=== PATIENT | female | born 1970 | race Caucasian/White ===

== ENCOUNTER 2021-10-17 10:15 | Emergency (ER) | payer BC, SELFPAY ==
--- NOTE | 2021-10-17 | ECG_ITS ---
Measurements Intervals [place] Rate: 95 P: 29 CO: 151 QRS: 20 QRSD: 78 T: 18 QT: 330 QTc: 416 Interpretive Statements SINUS RHYTHM LOW QRS VOLTAGE IN PRECORDIAL LEADS BASELINE ARTIFACT- I, II, III, AVR, AVL, AVF, V1-V6 BORDERLINE ECG Electronically Signed On 10-17-2021 16:10:47 [employer]OCUS PULLER by Roger Beasley D.O.
[2021-10-17 10:28] VITALS: BP 126/72; PULSE 91; RESP 16; TEMP 36.6; O2SAT 97
--- NOTE | 2021-10-17 10:44 | ED.CHESTPAIN ---
HPI - Chest Pain General Chief Complaint: Chest Pain Stated Complaint: chest pain Time Seen by Provider: 10/17/21 10:44 Source: patient Mode of arrival: ambulatory Limitations: no limitations History of Present Illness HPI narrative: Nico Nava is a 51 yo female with a PMH of high cholesterol and erosive esophagitis, who comes to [facility] with complaints of left-sided chest pain that started last night at 6 PM is intermittent and each time it recurs is worsening she describes her pain as 6 out of between 6 and 8 out of 10 with a squeezing sensation with radiation into the left side of the neck. Patient is under the care of a physician at [facility] Related Data Allergies Allergy/AdvReac Type Severity Reaction Status Date / Time No Known Drug Allergies Allergy Mild Other Verified 10/17/21 11:36 Review of Systems Review of Systems: CONSTITUTIONAL: Denies fever, chills, sweats. EYES: Denies visual changes, redness, discharge. ENT: Denies rhinorrhea, congestion, sore throat, otalgia. CARDIOVASCULAR: Has chest pain, palpitations, edema. RESPIRATORY: Denies dyspnea, wheezing, cough GASTROINTESTINAL: Denies abdominal pain, nausea, vomiting, diarrhea. GENITOURINARY: Denies dysuria, hematuria, abnormal discharge SKIN: Denies rash or itching. NEUROLOGIC: Denies numbness, or focal weakness. PSYCHIATRIC: Denies anxiety or depression. [facility] Past Medical History Medical History Erosive esophagitis High cholesterol Smoker Social History Social History (Updated 10/17/21 @ 10:47 by Fatuma Villagomez CNP) Smoking status: Current every day smoker Tobacco type: cigarettes Comments At time of signature, I agree with nursing past medical, surgical, social and family history. There is no relevant family history pertinent to the presenting complaint. Exam Narrative: GENERAL: This is a well-nourished, well-developed patient, in mild distress. HEAD: normocephalic, atraumatic. EYES: Sclera clear/white. Vision is grossly intact. EARS: External ears normal. Hearing grossly intact. NOSE: External nose normal without nasal discharge, nares without redness, no rhinorrhea. THROAT: Mucous membranes moist, NECK: Neck supple, non-tender CARDIOVASCULAR: Regular rate and rhythm without murmurs, gallops, or rubs. RESPIRATORY: Clear to auscultation. Breath sounds equal bilaterally. No wheezes, rales, or rhonchi. GASTROINTESTINAL: Abdomen soft, non-tender, SKIN: warm, intact with no suspicious lesions or rash, good texture and turgor. NEURO: awake, alert, and oriented to person, place and time. There were no obvious focal neurologic abnormalities. Steady gait EXTREMITIES: Normal range of motion. BACK: Nontender without deformity Course Course Emergency Course: Patient comes with pressure in left-sided chest that radiates to her left neck gets intermittent pain that started yesterday EKG shows EKG changes in lead I and aVL no QT prolongation rate is 95 abnormal EKG Patient transferred to [facility] for further evaluation Level of Care: Express Care Visit Vital Signs Vital signs: Vital Signs Temperature 97.9 F 10/17/21 10:28 Pulse Rate 91 10/17/21 10:28 Respiratory Rate 16 10/17/21 10:28 Blood Pressure 126/72 10/17/21 10:28 Pulse Oximetry 97 10/17/21 10:28 Temperature 97.9 F 10/17/21 10:28 Pulse Rate 91 10/17/21 10:28 Respiratory Rate 16 10/17/21 10:28 Blood Pressure 126/72 10/17/21 10:28 Pulse Oximetry 97 10/17/21 10:28 MDM - Chest Pain Differential Diagnosis Differential diagnosis: Likely stable angina, costochondritis, chest pain and other Critical Care Time Critical Care Time Critical Care Time: No Discharge Plan Discharge Clinical Impression: Chest pain Qualifiers: Chest pain type: other chest pain Qualified Code(s): R07.89 - Other chest pain Patient Disposition: Acute Care Hospital Condition: Stable Instructions: Chest Pain (ED) Follow-up/Refe
== END 2021-10-17 10:45 | disposition short-term general hospital (02) ==
PROVIDERS: Emergency Provider Nurse Practitioner; PCP Family Medicine
DX: R07.89 Other chest pain (principal); F17.210 Nicotine dependence, cigarettes, uncomplicated; E78.00 Pure hypercholesterolemia, unspecified
CPT/HCPCS: 93005; 99213; G0463

== ENCOUNTER 2022-08-01 11:01 | Emergency (ER) | payer BC, SELFPAY ==
[2022-08-01 11:25] VITALS: BP 129/90; PULSE 99; RESP 18; TEMP 35.8; O2SAT 98
--- NOTE | 2022-08-01 13:01 | ED.SKABFB ---
HPI - Skin/Abscess/Foreign Bdy General Chief complaint: Skin/Abscess/Foreign Body Stated complaint: Rash on Arms Time Seen by Provider: 08/01/22 13:01 Source: patient Mode of arrival: ambulatory Limitations: no limitations History of Present Illness HPI narrative: 52-year-old female presents with complaint of rash to anterior aspect of both breasts for 3 weeks. Has not seen her primary care physician for this problem. States that she did message a nurse through the online system and was told to go to the urgent care to be treated. Patient denies use of any new skin products. No new clothes. Reports that she has very sensitive skin and cannot use any lotions. States that rash started to right wrist and then travel to left wrist. Nonpainful. Complaining of itching. All systems reviewed and negative except as noted above. Related Data Home Medications Medication Instructions Recorded Confirmed bupropion HCl 150 mg 24 hr tablet, mg PO 08/01/22 extended release furosemide 20 mg tablet mg 08/01/22 glycopyrrolate 2 mg tablet mg 08/01/22 magnesium oxide 400 mg (241.3 mg mg 08/01/22 magnesium) tablet prochlorperazine maleate 10 mg mg 08/01/22 tablet sucralfate 1 gram tablet 08/01/22 Allergies Allergy/AdvReac Type Severity Reaction Status Date / Time No Known Drug Allergies Allergy Mild Other Verified 10/17/21 11:36 Review of Systems Review of Systems: CONSTITUTIONAL: Denies fever, chills, or sweats. EYES: Denies visual changes, redness, or discharge. ENT: Denies rhinorrhea, congestion, sore throat, or otalgia. CARDIOVASCULAR: Denies chest pain, palpitations, or edema. RESPIRATORY: Denies cough or dyspnea. GASTROINTESTINAL: Denies abdominal pain, nausea, vomiting, or diarrhea. GENITOURINARY: Denies dysuria or hematuria. SKIN: Report rash and itching. MUSCULOSKELETAL: Denies back pain, joint pain, or myalgia. NEUROLOGIC: Denies headache, numbness, or weakness. PSYCHIATRIC: Denies anxiety or depression. All other systems reviewed are negative, except as documented in HPI. [facility] Past Medical History Medical History Erosive esophagitis High cholesterol Smoker Social History Social History (Updated 10/17/21 @ 10:47 by Fatuma Villagomez, CONTACT CENTER DIRECTOR) Smoking status: Current every day smoker Tobacco type: cigarettes Comments At time of signature, agree with nursing past medical, surgical, social and family history. There is no relevant family history pertinent to the presenting complaint. Exam Narrative: GENERAL: This is a well-nourished, well-developed patient, in no apparent distress. HEAD: normocephalic, atraumatic. EYES: PERRL. Sclera clear/white. Vision is grossly intact. EARS: External ears normal NOSE: External nose normal NECK: Neck supple, non-tender without lymphadenopathy, masses or thyromegaly. CARDIOVASCULAR: Regular rate and rhythm without murmurs, gallops, or rubs. RESPIRATORY: Clear to auscultation. Breath sounds equal bilaterally. No wheezes, rales, or rhonchi. SKIN: warm, Dry, intact with no suspicious lesions good texture and turgor. erythematous, scaly rash to anterior aspect both wrists. there is no swelling or drainage. NEURO: awake, alert, and oriented to person, place and time. There were no obvious focal neurologic abnormalities. EXTREMITIES: No joint tenderness, effusion, or edema noted. Course Course Level of Care: Express Care Visit Vital Signs Vital signs: Vital Signs Temperature 35.8 C L 08/01/22 11:25 Pulse Rate 99 08/01/22 11:25 Respiratory Rate 18 08/01/22 11:25 Blood Pressure 129/90 08/01/22 11:25 Pulse Oximetry 98 08/01/22 11:25 Oxygen Delivery Room Air 08/01/22 11:25 Temperature 35.8 C L 08/01/22 11:25 Pulse Rate 99 08/01/22 11:25 Respiratory Rate 18 08/01/22 11:25 Blood Pressure 129/90 08/01/22 11:25 Pulse Oximetry 98 08/01/22 11:25 Oxygen Delivery Room Air 08/01/22 11:25 Reviewed MDM
== END 2022-08-01 13:11 | disposition home or self-care (01) ==
PROVIDERS: Emergency Provider Nurse Practitioner Family; PCP Family Medicine
DX: L30.9 Dermatitis, unspecified (principal); E78.00 Pure hypercholesterolemia, unspecified; F17.210 Nicotine dependence, cigarettes, uncomplicated; K22.10 Ulcer of esophagus without bleeding
CPT/HCPCS: 99213; G0463

== ENCOUNTER 2022-12-08 18:27 | Emergency (ER) | payer BC, SELFPAY ==
[2022-12-08 18:50] VITALS: BP 146/75; PULSE 96; RESP 12; TEMP 36.6; O2SAT 98
[2022-12-08 18:51] VITALS: BP 146/75; PULSE 96; RESP 12; TEMP 36.6; O2SAT 98
--- NOTE | 2022-12-08 18:57 | ED.FEMALEGU ---
HPI - Female Genitourinary General Chief complaint: Urogenital-Female Stated complaint: uti Time Seen by Provider: 12/08/22 18:57 Source: patient Mode of arrival: ambulatory Limitations: no limitations History of Present Illness HPI Narrative: Glenna is a 52-year-old female patient presenting to clinic today with complaints of possible urinary tract infection times 1-2 weeks. She states she is having cloudy malodorous urine and discomfort with urination. She denies any abdominal pain or flank pain. She denies any fever or chills. Related Data Home Medications Medication Instructions Recorded Confirmed bupropion HCl 150 mg 24 hr tablet, mg PO 08/01/22 extended release furosemide 20 mg tablet mg 08/01/22 glycopyrrolate 2 mg tablet mg 08/01/22 magnesium oxide 400 mg (241.3 mg mg 08/01/22 magnesium) tablet prochlorperazine maleate 10 mg mg 08/01/22 tablet sucralfate 1 gram tablet 08/01/22 esomeprazole magnesium 40 mg mg 12/08/22 capsule,delayed release levalbuterol tartrate 45 inhalation 12/08/22 12/08/22 mcg/actuation aerosol inhaler ondansetron 4 mg disintegrating mg 12/08/22 12/08/22 tablet rosuvastatin 10 mg tablet mg 12/08/22 Allergies Allergy/AdvReac Type Severity Reaction Status Date / Time No Known Drug Allergies Allergy Mild Other Verified 12/08/22 18:47 Review of Systems Review of Systems: Pertinent positives per HPI. Patient denies any fever, chills, rash, headache, visual changes, dizziness, cough, runny nose, sore throat, shortness of breath, chest pain, palpitations, nausea, vomiting, diarrhea, constipation, abdominal pain. [facility] Past Medical History Medical History Erosive esophagitis High cholesterol Smoker Social History Social History Smoking status: Current every day smoker Tobacco type: cigarettes Comments At the time of my signature, I reviewed and agree with the nursing past medical, surgical, social, and family history. There is no relevant family history pertinent to the patient complaint. Exam Narrative: General: Well-developed, obese, in no apparent distress. Head: Normocephalic, atraumatic. Cardio: Regular rate and rhythm, s1 and s2 normal, no murmur appreciated. Resp: Clear to auscultation bilaterally, no rhonchi, rales, wheezing or rubs. Abdomen: Soft, pliable, bowel sounds present in all quadrants, non-tender to palpation, no organomegly, no CVAT tenderness. Course Course Emergency Course: Portions of this record may have been created with voice recognition software. Level of Care: Express Care Visit Vital Signs Vital signs: Vital Signs Temperature 36.6 C 12/08/22 18:50 Pulse Rate 96 12/08/22 18:50 Respiratory Rate 12 12/08/22 18:50 Blood Pressure 146/75 H 12/08/22 18:50 Pulse Oximetry 98 12/08/22 18:50 Oxygen Delivery Room Air 12/08/22 18:50 Temperature 36.6 C 12/08/22 18:51 Pulse Rate 96 12/08/22 18:51 Respiratory Rate 12 12/08/22 18:51 Blood Pressure 146/75 H 12/08/22 18:51 Pulse Oximetry 98 12/08/22 18:51 Oxygen Delivery Room Air 12/08/22 18:51 Vital signs reviewed MDM - Female Genitourinary MDM Narrative Medical decision making narrative: At the time of visit patient is resting comfortably on exam table. Urinalysis was completed and shows cloudy urine, trace of leukocyte, and 1+ blood. Will send for culture. Will place the patient on prescription for Bactrim. Supportive measures were discussed with the patient she voiced understanding discharge instructions agrees to treatment plan. Differential Diagnosis Differential diagnosis: Likely urinary tract infection and cystitis Lab Data Labs: Urine Glucose Negative Reference Range: Negative Urine Glucose Negative Reference Range: Negative
== END 2022-12-08 19:12 | disposition home or self-care (01) ==
PROVIDERS: Emergency Provider Nurse Practitioner Family; PCP Family Medicine
DX: N30.01 Acute cystitis with hematuria (principal); F17.210 Nicotine dependence, cigarettes, uncomplicated
CPT/HCPCS: 81003; 87086; 99213; G0463

== ENCOUNTER 2023-07-16 16:35 | Emergency (ER) | payer BC, SELFPAY ==
[2023-07-16 16:50] VITALS: BP 144/77; PULSE 88; RESP 20; TEMP 36.4; O2SAT 99
--- NOTE | 2023-07-16 17:11 | ED.EXTPRO ---
HPI - Extremity Problem General Chief complaint: Extremity Problem,Nontraumatic Stated complaint: right knee swollen Time Seen by Provider: 07/16/23 16:53 Source: patient and RN notes reviewed Mode of arrival: ambulatory Limitations: no limitations History of Present Illness HPI Narrative: Patient presents today complaining of right knee pain x1 week. Denies injury or trauma. States pain is worse today and is intermittent. Reports pain at times radiates to her. Currently rates her pain 5/10. She has been taking Tylenol and ibuprofen as well as elevating it at home without much relief. Related Data Home Medications Medication Instructions Recorded Confirmed furosemide 20 mg tablet 20 mg PO DAILY PRN Edema 08/01/22 07/16/23 rosuvastatin 10 mg tablet 10 mg PO DAILY 12/08/22 07/16/23 esomeprazole magnesium 40 mg 40 mg PO DAILY 07/16/23 07/16/23 capsule,delayed release Allergies Allergy/AdvReac Type Severity Reaction Status Date / Time No Known Drug Allergies Allergy Mild Other Verified 07/16/23 16:39 Review of Systems Review of Systems: CONSTITUTIONAL: Denies body aches, fever, chills, or sweats. EYES: Denies visual changes, redness, or discharge. ENT: Denies rhinorrhea, congestion, sore throat, or otalgia. CARDIOVASCULAR: Denies chest pain, palpitations, or edema. RESPIRATORY: Denies cough or dyspnea. GASTROINTESTINAL: Denies abdominal pain, nausea, vomiting, or diarrhea. GENITOURINARY: Denies dysuria or hematuria. SKIN: Denies rash, itching, or wounds. MUSCULOSKELETAL: Denies back pain, or myalgia.+ right knee pain NEUROLOGIC: Denies headache, numbness, tingling, or weakness. PSYCH: Denies depression or anxiety. PMFSH Past Medical History Medical History Erosive esophagitis High cholesterol Smoker Social History Social History Smoking status: Current every day smoker Tobacco type: cigarettes Comments At time of signature, I have reviewed and agree with nursing past medical, surgical, social and family history unless otherwise noted. Please see nursing chart for further information. There is no relevant family history pertinent to the presenting complaint Exam Narrative: GENERAL: Well-appearing, well-nourished, and in no acute distress. HEAD: Normocephalic, atraumatic. EYES: EOMI. No redness or drainage. Conjunctivae normal. ENT: Mucous membranes pink and moist. NECK: Normal AROM. CHEST: No respiratory distress. EXTREMITIES: Right knee: Tenderness to the medial joint line. No tenderness laterally. No bony tenderness of the patella, or the patellar tendon. No pain with active range of motion. Distal sensation intact. Capillary refill normal. Pedal pulses normal. No erythema or ecchymosis noted. Mild edema noted about the knee. SKIN: Warm, dry, no rash. Capillary refill normal. Normal skin turgor. NEURO: No focal deficits. Alert and oriented x3. Gait steady. PSYCH: Normal affect. No signs of depression or anxiety. Course Course Level of Care: Express Care Visit Vital Signs Vital signs: Vital Signs Temperature 97.6 F 07/16/23 16:50 Pulse Rate 88 07/16/23 16:50 Respiratory Rate 20 07/16/23 16:50 Blood Pressure 144/77 H 07/16/23 16:50 Pulse Oximetry 99 07/16/23 16:50 Temperature 97.6 F 07/16/23 16:50 Pulse Rate 88 07/16/23 16:50 Respiratory Rate 20 07/16/23 16:50 Blood Pressure 144/77 H 07/16/23 16:50 Pulse Oximetry 99 07/16/23 16:50 Reviewed MDM - Extremity (Nontraumatic) MDM Narrative Medical decision making narrative: Patient has declined transfer to the [facility] for x-ray, as this facility does not currently have an x-ray accredited pharmacy technician. Will try patient on a Medrol Dosepak to see if this helps with her symptoms. Recommend she follow up with her PCP or orthopedist for further evaluation. Patient agrees with plan. Anticipatory guidance given.. Diff
== END 2023-07-16 17:20 | disposition home or self-care (01) ==
PROVIDERS: Emergency Provider Nurse Practitioner; PCP Family Medicine
DX: M25.561 Pain in right knee (principal); K22.10 Ulcer of esophagus without bleeding; E78.00 Pure hypercholesterolemia, unspecified; F17.210 Nicotine dependence, cigarettes, uncomplicated
CPT/HCPCS: 99213; G0463

== ENCOUNTER 2023-08-02 08:40 | Outpatient (CLI) | payer BC, SELFPAY ==
--- NOTE | ~2023-08-02 | MR_ITS ---
MRI of the left knee Clinical history: Pain Technique: Coronal proton density and proton density-weighted images, sagittal proton-density and T2 fat-sat images, and axial proton-density fat-saturated images were acquired. Findings: Anterior cruciate ligament is somewhat poorly delineated, with increased signal. This could reflect severe mucoid degenerative change versus possible chronic complete tear. Correlate for ACL l axity. Posterior cruciate ligament is intact. Medial collateral ligament and the lateral collateral l igament complex are intact. Popliteus tendon is intact. Medial and lateral menisci are intact, without evidence of tear. Probable mild tricompartmental chondral thinning. Bone marrow signals are unremarkable. Extensor mechanism is intact. Small joint effusion present. There is small Fishman's cyst with evidence of probable partial rupture of the cyst, with soft tissue edema extending posteriorly along fascial planes. 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 Correlate for ACL laxity. Small, partially ruptured Fishman's cyst, with fluid extending inferiorly along fascial planes. Mild tricompartmental chondral thinning. Reviewed, dictated and finalized at location . 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 Breann elate for ACL laxity. Small, partially ruptured Fishman's cyst, with fluid extending inferiorly along f ascial planes. Mild tricompartmental chondral thinning.
== END 2023-08-02 08:41 ==
LOC: MICIMG 08:42
PROVIDERS: PCP Family Medicine; Visit Provider Orthopaedic Surgery
DX: M71.22 Synovial cyst of popliteal space [Baker], left knee (principal); M94.262 Chondromalacia, left knee
CPT/HCPCS: 73721

== ENCOUNTER 2024-03-29 11:46 | Emergency (ER) | payer BC, SELFPAY ==
[2024-03-29 12:11] VITALS: BP 139/87; PULSE 98; RESP 18; TEMP 36.6; O2SAT 98
--- NOTE | 2024-03-29 13:02 | ED.URI ---
HPI - URI/Sore Throat General Chief Complaint: Upper Respiratory Infection Stated Complaint: Vomiting/Ear Irritation Time Seen by Provider: 03/29/24 13:03 History of Present Illness HPI Narrative: patient presents with fever, chills, sweats, body aches, cough. Symptoms began yesterday. She denies any shortness of breath. Related Data Home Medications Medication Instructions Recorded Confirmed furosemide 20 mg tablet 20 mg PO DAILY PRN Edema 08/01/22 03/29/24 rosuvastatin 10 mg tablet 10 mg PO DAILY 12/08/22 03/29/24 esomeprazole magnesium 40 mg 40 mg PO DAILY 07/16/23 03/29/24 capsule,delayed release Allergies Allergy/AdvReac Type Severity Reaction Status Date / Time No Known Drug Allergies Allergy Mild Other Verified 03/29/24 12:16 Review of Systems Review of Systems: All systems reviewed & are unremarkable except as noted in HPI and below Constitutional: Constitutional: Reports fatigue, Reports fever(s), Reports headache(s) and Reports malaise ENT: Reports system reviewed and no additional complaints, except as documented, Reports headache(s), Reports nasal discharge, Reports nasal obstruction and Reports post nasal drip Cardiovascular: Cardiovascular: Reports no additional cardiovascular complaints Respiratory: Respiratory: Reports cough Gastrointestinal: Gastrointestinal: Reports no additional gastrointestinal complaints Musculoskeletal: Musculoskeletal: Reports myalgias PMFSH Past Medical History Medical History Erosive esophagitis High cholesterol Smoker Social History Social History Smoking status: Current every day smoker Tobacco type: cigarettes Exam Const: General: cooperative, no acute distress, alert and awake Orientation/consciousness: oriented to person, oriented to place and oriented to time HENMT: Head: normal to inspection Throat: postnasal drainage Resp: Effort & Inspection: normal respiratory effort and able to speak in complete sentences Auscultation: clear to auscultation bilaterally, no crackles, no rales, no rhonchi and no wheezes Cardio: Palpation: normal PMI Rate: regular rate Rhythm: regular rhythm Heart sounds: S1 normal heart sound present and S2 normal heart sound present Neuro: General: oriented to person, oriented to place and oriented to time Cranial nerves: Yes CN's II-XII intact bilaterally Psych: Appearance: grossly normal Thought process: Normal thought process present Insight: Good insight present (Psych) Judgement: Good judgement present (Psych) Course Course Level of Care: Express Care Visit Vital Signs Vital signs: Vital Signs Temperature 97.8 F 03/29/24 12:11 Pulse Rate 98 03/29/24 12:11 Respiratory Rate 18 03/29/24 12:11 Blood Pressure 139/87 03/29/24 12:11 Pulse Oximetry 98 03/29/24 12:11 Oxygen Delivery Room Air 03/29/24 12:11 Temperature 97.8 F 03/29/24 12:11 Pulse Rate 98 03/29/24 12:11 Respiratory Rate 18 03/29/24 12:11 Blood Pressure 139/87 03/29/24 12:11 Pulse Oximetry 98 03/29/24 12:11 Oxygen Delivery Room Air 03/29/24 12:11 MDM - URI/Sore Throat MDM Narrative Medical decision making narrative: patient with COVID less than 48 hours. She wishes to start Paxil bit. This has been ordered. She appears stable, nontoxic. Emergency department for new or worsening symptoms. Follow up with primary care provider in 1-2 weeks. Elevated blood pressure of 139/87 discussed with patient, states she will follow up with primary care for Medical Records Attestation: I reviewed the patient's medical records. Lab Data Attestation: I reviewed the patient's lab results. Lab results narrative: positive covid Labs: Lab Results 03/29/24 Range/Units 13:01 POC SARS CoV-2 Ag Positive (Negative) Discharge Plan Discharge Clinical Impression: COVID-19, Elevated blood pressure reading Patient Disposition
== END 2024-03-29 13:18 | disposition home or self-care (01) ==
PROVIDERS: Emergency Provider Nurse Practitioner Family; PCP Family Medicine
DX: U07.1 COVID-19 (principal); R03.0 Elevated blood-pressure reading, without diagnosis of hypertension; F17.210 Nicotine dependence, cigarettes, uncomplicated; E78.00 Pure hypercholesterolemia, unspecified; K20.80 Other esophagitis without bleeding
CPT/HCPCS: 87426; 99213; G0463

== ENCOUNTER 2024-07-10 15:38 | Emergency (ER) | payer BC, SELFPAY ==
--- NOTE | 2024-07-10 15:39 | ED.SKABFB ---
HPI - Skin/Abscess/Foreign Bdy General Chief complaint: Skin/Abscess/Foreign Body Stated complaint: Insect Bite Time Seen by Provider: 07/10/24 15:56 Source: patient, RN notes reviewed and old records reviewed Mode of arrival: ambulatory Limitations: no limitations History of Present Illness HPI narrative: 54-year-old female presents to the [facility] with concerns of being bit by an insect of unknown yesterday. Area is now red to the right rib. No treatment prior to arrival Related Data Home Medications Medication Instructions Recorded Confirmed furosemide 20 mg tablet 20 mg PO DAILY PRN Edema 08/01/22 07/10/24 rosuvastatin 10 mg tablet 10 mg PO DAILY 12/08/22 07/10/24 esomeprazole magnesium 40 mg 40 mg PO DAILY 07/16/23 07/10/24 capsule,delayed release Allergies Allergy/AdvReac Type Severity Reaction Status Date / Time No Known Drug Allergies Allergy Mild Other Verified 07/10/24 15:41 Review of Systems Review of Systems: All systems reviewed & are unremarkable except as noted in HPI and below Constitutional: Constitutional: Reports no additional constitutional complaints ENT: Reports system reviewed and no additional complaints, except as documented Cardiovascular: Cardiovascular: Reports no additional cardiovascular complaints, Denies chest pain and Denies dyspnea Respiratory: Respiratory: Reports no additional respiratory complaints, Denies chest congestion, Denies cough and Denies dyspnea Gastrointestinal: Gastrointestinal: Reports no additional gastrointestinal complaints, Denies abdominal pain, Denies nausea and Denies vomiting Musculoskeletal: Musculoskeletal: Reports no additional musculoskeletal complaints Integumentary/Breasts: Skin/Breast: Reports as per HPI PMF Past Medical History Medical History Erosive esophagitis High cholesterol Smoker Social History Social History Smoking status: Current every day smoker Tobacco type: cigarettes Comments At the time of my signature, I reviewed and agree with the nursing past medical, surgical, social, and family history. There is no relevant family history pertinent to the patient complaint. Exam Const: General: cooperative, healthy appearing, comfortable, no acute distress, well developed, alert and well nourished Nutritional Appearance: well nourished and obese Orientation/consciousness: patient oriented x3 Limitations: no limitations HENMT: Head: normal to inspection Ears: hearing grossly normal bilaterally and external ears normal Face/Nose/Sinus: Normal external nose present, normal facial exam and face symmetric Face and sinus: normal facial exam and face symmetric Eyes: General: appearance normal, both eyes and all related structures Alignment and Position: alignment normal Periorbital: periorbital findings normal Neck: Neck: normal visual inspection, full ROM, no lymphadenopathy and no meningeal signs Chest: Chest palpation & inspection: normal inspection of the chest Resp: Effort & Inspection: normal respiratory effort and able to speak in complete sentences Cardio: Rate: regular rate Skin: General skin exam: normal color and no rashes or lesions noted Rashes: no rashes Other: Red slightly raised area, 3 x 1 cm right lower rib lateral aspect not warm to touch, no fluctuance Neuro: General: patient oriented x3, gait normal, tone normal, moves all extremities and no meningeal signs Cognition (Neuro): normal cognition Speech: normal speech Gait exam (Neuro): Normal gait present Extrem: General: normal to inspection, full ROM, capillary refill normal and normal gait Psych: Appearance: grossly normal and well kempt Mental Status: mental status grossly normal Speech and movement: Normal speech and movement present and Clear speech present Affect: normal affect Attitude: cooperative Course Course Level of Care: Express Care Visit Vital Signs Vital signs:
[2024-07-10 15:50] VITALS: BP 129/64; PULSE 85; RESP 18; TEMP 36.4; O2SAT 97
== END 2024-07-10 16:30 | disposition home or self-care (01) ==
PROVIDERS: Emergency Provider Nurse Practitioner; PCP Family Medicine
DX: S20.361A Insect bite (nonvenomous) of right front wall of thorax, initial encounter (principal); W57.XXXA Bitten or stung by nonvenomous insect and other nonvenomous arthropods, initial encounter; K22.10 Ulcer of esophagus without bleeding; E78.00 Pure hypercholesterolemia, unspecified; F17.210 Nicotine dependence, cigarettes, uncomplicated
CPT/HCPCS: 99213; G0463

== ENCOUNTER 2024-10-31 18:21 | Emergency (ER) | payer BC, SELFPAY ==
--- NOTE | ~2024-10-31 | XR_ITS ---
CHEST RADIOGRAPH, PA AND LATERAL CLINICAL HISTORY: prod bloody cough x 1 day non smoker . COMPARISON: 07/06/2016 TECHNIQUE: PA and lateral views of the chest. FINDINGS The cardiomediastinal silhouette is unremarkable. 12 mm asymmetry within the left costophrenic sulcus, unchanged dating back to 2015 and likely a calci fied granuloma. The remainder of the lungs are clear. IMPRESSION: No focal infiltrate or effusion. Reviewed, dictated and finalized at location [employer]. [employer]
[2024-10-31 18:32] VITALS: BP 143/103; PULSE 89; RESP 16; TEMP 36.2; O2SAT 97
--- NOTE | 2024-10-31 18:32 | ED.URI ---
HPI - URI/Sore Throat General Chief Complaint: Upper Respiratory Infection Stated Complaint: cough,phlegm,fever,chills,VARGHESE Time Seen by Provider: 10/31/24 18:34 Source: patient and RN notes reviewed Mode of arrival: ambulatory Limitations: no limitations History of Present Illness HPI Narrative: 54-year-old female presents with concern for 1 day history of body aches, headache, chills, ear pain, productive cough, fever, chest tightness. She reports her phlegm is ?black with blood tinge she reports coughing fits that cause her to feel like she can not breathe. MD elicited complaint: cough and sore throat Related Data Home Medications ?Medication ?Instructions ?Recorded ?Confirmed ?Last Taken ?Type furosemide 20 mg tablet 20 mg PO DAILY PRN Edema 08/01/22 10/31/24 Unknown History rosuvastatin 10 mg tablet 10 mg PO DAILY 12/08/22 10/31/24 Unknown History esomeprazole magnesium 40 mg 40 mg PO DAILY 07/16/23 10/31/24 Unknown History capsule,delayed release Allergies Allergy/AdvReac Type Severity Reaction Status Date / Time No Known Drug Allergies Allergy Mild Other Verified 10/31/24 18:30 Review of Systems Review of Systems: CONSTITUTIONAL: Reports malaise, chills, fever. EYES: Denies visual changes, redness, or discharge. ENT: Reports rhinorrhea, congestion, otalgia CARDIOVASCULAR: Denies chest pain, palpitations, or edema. RESPIRATORY: Reports productive cough, and chest congestion and chest tightness GASTROINTESTINAL: Denies abdominal pain, nausea, vomiting, diarrhea SKIN: Denies rash or itching. MUSCULOSKELETAL: Reports myalgia. NEUROLOGIC: Reports headache. All systems reviewed & are unremarkable except as noted in HPI and below PMFSH Past Medical History Medical History Erosive esophagitis High cholesterol Smoker Social History Social History Smoking status: Current every day smoker Tobacco type: cigarettes Comments At time of signature, agree with nursing past medical, surgical, social and family history. There is no relevant family history pertinent to the presenting complaint Exam Narrative: GENERAL: Well-appearing, well-nourished, and in no acute distress. HEAD: Normocephalic EYES: PERRLA, conjunctivae clear ENT: Nares clear. Mucous membranes moist. TM pearly chicas with sharp light reflex bilaterally; no tragal tenderness. Oropharynx not erythematous without lesions. Tonsils not enlarged and without exudate, no drooling, no hoarseness, no trismus, uvula midline. NECK: Supple. No lymphadenopathy CHEST: Inspiratory wheeze throughout, breath sounds equal. No rhonchi, rales, or stridor. No respiratory distress, speaks in full sentences. HEART: Regular rate and rhythm. No murmur heard. SKIN: Warm, dry, no rash. NEURO: Alert and oriented x3. PSYCH: Normal mood and affect Course Course Emergency Course: Patient is aware of diagnosis, understands and agrees to treatment plan. Anticipatory guidance given. Patient agrees to follow-up as directed and is aware of reasons to seek care at the emergency department. Portions of this record may have been created with voice recognition software Level of Care: Express Care Visit Vital Signs Vital signs: Reviewed. MDM - URI/Sore Throat MDM Narrative Medical decision making narrative: Differential diagnosis considered: Del Rosario virus, strep pharyngitis, allergic rhinitis, upper respiratory tract infection, sinusitis, rhinosinusitis, nasopharyngitis. viral pharyngitis, otitis media, otitis externa, pneumonia, bronchitis, viral cough syndrome, viral syndrome, and influenza. Exam findings show no acute concerns or changes; patient is non-toxic appearing and is in no distress. Patient is appropriate for outpatient treatment and follow-up. Lab Data Attestation: I reviewed the patient's lab results. Imaging Data My impression: Images reviewed, interpreted by radiologist, agree, see report. Radiologist's impression: CHEST RADIOGRAPH, PA AND LATERAL CLINICAL HISTORY: prod bloody cough x 1 day non smoker . COMPARISON: 07/06/2016 TECHNIQUE: PA and lateral views of the chest. FINDINGS The cardiomediastinal silhouette is unremarkable. 12 mm asymmetry within the left costophrenic sulcus, unchanged dating back to 2016 and likely a calcified granuloma. The remainder of the lungs are clear. IMPRESSION: No focal infiltrate or effusion. Critical Care Time Critical Care Time Critical Care Time: No Discharge Plan Discharge Clinical Impression: Cough Patient Disposition: Home, Self-Care Condition: Stable Instructions: How to Use a Metered-Dose Inhaler (ED) Additional Instructions: Differential diagnosis considered: Del Rosario virus, strep pharyngitis, allergic rhinitis, upper respiratory tract infection, sinusitis, rhinosinusitis, nasopharyngitis. viral pharyngitis, otitis media, otitis externa, pneumonia, bronchitis, viral cough syndrome, viral syndrome, and influenza. Exam findings show no acute concerns or changes; patient is non-toxic appearing and is in no distress. Patient is appropriate for outpatient treatment and follow-up. Patient Language: Thai Prescriptions: New prednisone 20 mg tablet 40 mg PO DAILY 5 Days Qty: 10 0RF albuterol sulfate 90 mcg/actuation HFA aerosol inhaler 2 puff INHALATION QID PRN (Reason: shortness of breath or wheezing) Qty: 8.5 0RF azithromycin [Zithromax Z-Guy] 250 mg tablet See Rx Instructions .ROUTE .COMPLEX Qty: 6 0RF Rx Instructions: take 500 mg today (day 1), then 250 mg for 4 days (days 2-5) No Action rosuvastatin 10 mg tablet 10 mg PO DAILY esomeprazole magnesium 40 mg capsule,delayed release(DR/EC) 40 mg PO DAILY furosemide 20 mg tablet 20 mg PO DAILY PRN (Reason: Edema) Follow-up/Referrals: Liat,Kian Fox MD [Primary Care Provider] - Stand Alone Forms: Work/School Release IP Time of Disposition: 20:05
[2024-10-31 18:51] LABS: EDCOVIDSCREEN Negative (Negative); EDINFLUASCREEN Negative (Negative); EDINFLUBSCREEN Negative (Negative)
== END 2024-10-31 20:09 | disposition home or self-care (01) ==
PROVIDERS: Emergency Provider Nurse Practitioner; PCP Family Medicine
DX: R05.9 Cough, unspecified (principal); Z20.822 Contact with and (suspected) exposure to COVID-19; F17.210 Nicotine dependence, cigarettes, uncomplicated; E78.00 Pure hypercholesterolemia, unspecified
CPT/HCPCS: 71046; 87426; 87804; 99213; G0463

== ENCOUNTER 2024-11-20 13:18 | Emergency (ER) | payer BC, SELFPAY ==
[2024-11-20 13:25] VITALS: BP 132/81; PULSE 103; RESP 16; TEMP 36.2; O2SAT 96
--- NOTE | 2024-11-20 13:47 | ED.GENADULT ---
HPI - General Adult General Chief complaint: Nausea/Vomiting/Diarrhea Stated complaint: diarrhea,no better since last visit,flu/covid exp Time Seen by Provider: 11/20/24 13:47 Source: patient, RN notes reviewed and old records reviewed Mode of arrival: ambulatory Limitations: no limitations History of Present Illness HPI narrative: 54-year-old female presents to the [facility] with concerns for COVID and flu. 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 Patient was seen is on is October 31. Had 1 day history of body aches, headaches. X-ray was negative, flu COVID strep were negative. Was prescribed antibiotic, albuterol and steroids. Patient reports cough has improved. Has not been using her in inhaler for the last 2-3 days. Has a primary care provider appointment on November 26 Related Data Home Medications ?Medication ?Instructions ?Recorded ?Confirmed ?Last Taken ?Type furosemide 20 mg tablet 20 mg PO DAILY PRN Edema 08/01/22 10/31/24 Unknown History rosuvastatin 10 mg tablet 10 mg PO DAILY 12/08/22 10/31/24 Unknown History esomeprazole magnesium 40 mg 40 mg PO DAILY 07/16/23 10/31/24 Unknown History capsule,delayed release Allergies Allergy/AdvReac Type Severity Reaction Status Date / Time No Known Drug Allergies Allergy Mild Other Verified 11/20/24 13:35 Review of Systems Review of Systems: All systems reviewed & are unremarkable except as noted in HPI and below Constitutional: Constitutional: Reports as per HPI ENT: Reports system reviewed and no additional complaints, except as documented Cardiovascular: Cardiovascular: Reports no additional cardiovascular complaints, Denies chest pain and Denies dyspnea Respiratory: Respiratory: Reports as per HPI, Reports chest congestion, Reports cough and Reports dyspnea Musculoskeletal: Musculoskeletal: Reports no additional musculoskeletal complaints Integumentary/Breasts: Skin/Breast: Reports system reviewed and no additional complaints, except as docu [facility] Past Medical History Medical History Smoker High cholesterol Erosive esophagitis Social History Social History Smoking status: Current every day smoker Tobacco type: cigarettes Comments At the time of my signature, I reviewed and agree with the nursing past medical, surgical, social, and family history. There is no relevant family history pertinent to the patient complaint. Exam Const: General: cooperative, healthy appearing, comfortable, no acute distress, well developed, alert and well nourished Nutritional Appearance: well nourished and obese Orientation/consciousness: patient oriented x3 Limitations: no limitations HENMT: Head: normal to inspection Ears: hearing grossly normal bilaterally, external ears normal, TM's normal bilaterally, EAC's normal, mastoids normal and no periauricular adenopathy Mouth: Yes Normal oral and palatal mucosa present, Yes lip normal, Yes tongue normal and Yes moist mucous membranes Throat: posterior oropharynx normal, uvula midline and no uvular edema Eyes: General: appearance normal, both eyes and all related structures Alignment and Position: alignment normal Neck: Neck: normal visual inspection, full ROM, no lymphadenopathy and no meningeal signs Chest: Chest palpation & inspection: normal inspection of the chest Resp: Effort & Inspection: normal respiratory effort and able to speak in complete sentences Auscultation: no crackles, no rales, no rhonchi and wheezes expiratory wheezes and throughout Cardio: Rate: regular rate Skin: General skin exam: normal color and no rashes or lesions noted Neuro: General: patient oriented x3, gait normal, moves all extremities and no meningeal signs Cognition (Neuro): normal cognition Speech: normal speech Gait exam (Neuro): Normal gait present Extrem: General: normal to inspection, full ROM, capillary refill normal and normal gait Psych: Appearance: grossly normal and well kempt Mental Status: mental status grossly normal Speech and movement: Normal speech and movement present and Clear speech present Affect: normal affect Attitude: cooperative Course Course Level of Care: Express Care Visit Vital Signs Vital signs: Vital Signs Temperature 97.2 F L 11/20/24 13:25 Pulse Rate 103 H 11/20/24 13:25 Respiratory Rate 16 11/20/24 13:25 Blood Pressure 132/81 11/20/24 13:25 Pulse Oximetry 96 11/20/24 13:25 Oxygen Delivery Room Air 11/20/24 13:25 Temperature 97.2 F L 11/20/24 13:25 Pulse Rate 103 H 11/20/24 13:25 Respiratory Rate 16 11/20/24 13:25 Blood Pressure 132/81 11/20/24 13:25 Pulse Oximetry 96 11/20/24 13:25 Oxygen Delivery Room Air 11/20/24 13:25 Reviewed Medical Decision Making MDM Narrative Medical decision making narrative: Patient sitting comfortably in exam room. Nontoxic, vitals stable. Patient in no acute distress Patient presents for 3 week history of URI symptoms. Patient concern for flu were COVID. Patient has already been treated with antibiotics, steroid and inhaler. Encouraged her to follow-up with primary care provider which she has an appointment in 6 days. Discussed [id number] treatment Patient appropriate for outpatient treatment and follow-up Discharge instructions reviewed with patient, as well as provided in writing per nursing staff. The instructions also include specific and strict return/GO TO THE ER as well as f/u information. All questions have been answered, and the patient deny any further questions with discharge and discharge plan. Some parts of this dictation were generated by voice recognition software and may contain typographical and/or grammatical inaccuracies. Differential Diagnosis Differential Diagnosis: URI, bronchitis, Medical Records Medical records reviewed: Yes I reviewed the external patient's medical records. Vital Signs Vital Signs: Vital Signs Temperature 97.2 F L 11/20/24 13:25 Pulse Rate 103 H 11/20/24 13:25 Respiratory Rate 16 11/20/24 13:25 Blood Pressure 132/81 11/20/24 13:25 Pulse Oximetry 96 11/20/24 13:25 Oxygen Delivery Room Air 11/20/24 13:25 Temperature 97.2 F L 11/20/24 13:25 Pulse Rate 103 H 11/20/24 13:25 Respiratory Rate 16 11/20/24 13:25 Blood Pressure 132/81 11/20/24 13:25 Pulse Oximetry 96 11/20/24 13:25 Oxygen Delivery Room Air 11/20/24 13:25 Reviewed Lab Data Lab results reviewed: Yes I reviewed the patient's lab results. Labs: Lab Results 11/20/24 Range/Units 13:58 POC Influenza A Ag Negative (Negative) POC Influenza B Ag Negative (Negative) POC SARS CoV-2 Ag Negative (Negative) Reviewed Critical Care Time Critical Care Time Critical Care Time: No Discharge Plan Discharge Clinical Impression: Upper respiratory infection, viral Patient Disposition: Home, Self-Care Condition: Stable Instructions: Antibiotic Form, Upper Respiratory Infection (ED) Additional Instructions: Your rapid COVID test were negative Your rapid flu test was negative Please use your inhaler 3 times a day for the next 3-5 days and then as needed Your symptoms are likely due to a viral illness, which is not treated with antibiotics. Typically viral infections last 7-10 days, can linger for couple of weeks. It is very important to treat your symptoms. Drink plenty of water, Gatorade, Pedialyte, ice pops or Jell-O. -Alternate Tylenol and Motrin per package directions for fever or pain. You can alternate every 4 hours -Antihistamine medication such as Zyrtec/Claritin/Breana during the day can help improve symptoms. -doing daily nasal irrigations can help relieve pressure your sinuses. Things like a Neti pot -Use Flonase twice a day for 5 days then daily to help reduce the inflammation and dry up your sinuses. -You can also use Mucinex. Be sure to drink plenty of water with this medication at least 8 ounces with every dose and it is important to drink 8 to 10 glasses of water per day. Water is a natural decongestant -Eat and drink things that are easy to swallow, like tea or soup, or popsicles. -Oral rinses such as: Salt water gargles and/or may use topical anesthetic (eg. Chloraseptic spray) or lozenges to relieve dryness or throat pain). -Frequent hand washing or hand cleaning specialist is one of the best ways to prevent spread of infection. -Using a vaporizer or humidifier at night will also help thin secretions and help with coughing up phlegm. -Follow up with primary care provider in 7-10 days if condition is not improving - For new or worsening symptoms go directly to the nearest ER Patient Language: South African Prescriptions: No Action rosuvastatin 10 mg tablet 10 mg PO DAILY esomeprazole magnesium 40 mg capsule,delayed release(DR/EC) 40 mg PO DAILY albuterol sulfate 90 mcg/actuation HFA aerosol inhaler 2 puff INHALATION QID PRN (Reason: shortness of breath or wheezing) Qty: 8.5 0RF furosemide 20 mg tablet 20 mg PO DAILY PRN (Reason: Edema) Follow-up/Referrals: Liat,Kian Fox MD [Primary Care Provider] - 1 Week ([facility]) Stand Alone Forms: Work/School Release IP Time of Disposition: 14:24
[2024-11-20 14:21] LABS: EDCOVIDSCREEN Negative (Negative); EDINFLUASCREEN Negative (Negative); EDINFLUBSCREEN Negative (Negative)
== END 2024-11-20 14:26 | disposition home or self-care (01) ==
PROVIDERS: Emergency Provider Nurse Practitioner; PCP Family Medicine
DX: J06.9 Acute upper respiratory infection, unspecified (principal); Z20.822 Contact with and (suspected) exposure to COVID-19; E78.00 Pure hypercholesterolemia, unspecified; F17.210 Nicotine dependence, cigarettes, uncomplicated
CPT/HCPCS: 87426; 87804; 99212; G0463